=== PATIENT | male | born 1990 ===

== ENCOUNTER 2020-05-12 07:21 | Outpatient (REF) | payer OTHER, SELFPAY | END 2020-05-12 07:22 | disposition home or self-care (01) | LOC: HO.LAB 07:21 | PROVIDERS: Visit Provider Internal Medicine | DX: Z20.828 Contact with and (suspected) exposure to other viral communicable diseases (principal) | CPT/HCPCS: C9803; U0003 ==

== ENCOUNTER 2021-06-24 09:48 | Outpatient (REF) | payer OTHER, SELFPAY ==
[2021-06-24 10:44] LABS: Hemoglobin 16.2 g/dl (14.0-18.0); Mean Corpuscular HGB Conc 33.8 g/dl (31.0-36.0); Mean Corpuscular Hemoglobin 28.4 pg (27.0-33.0); Mean Corpuscular Volume 84.2 fL (80.0-98.0); Mean Platelet Volume 12.4 fL (9.4-12.4); Platelet Count 209 X10*3/uL (160-400); Red Cell Distribution Width 12.3 % (11.0-16.0); White Blood Count 9.3 X10*3/uL (4.8-10.8)
[2021-06-24 11:05] LABS: Creatinine Urine 56.44 mg/dL; Microalbum/Creatinine Ratio Ur 10.6 ug/mg cr
[2021-06-24 11:24] LABS: Alanine Aminotransferase 17 U/L (0-40); Albumin Level 4.5 g/dL (3.5-5.0); Alkaline Phosphatase 149 U/L (39-117); Anion Gap 15 (12-20); Aspartate Amino Transferase 14 U/L (5-37); Blood Urea Nitrogen 15 mg/dL (9-16); Calcium 9.9 mg/dL (8.4-10.2); Carbon Dioxide 23 mmol/L (22-29); Chloride 102 mmol/L (96-108); Cholesterol 410 mg/dL; Estimated Glomerular Filt Rate > 60; Glucose Fasting 310 mg/dL (60-99); HDL Cholesterol 25 mg/dL; Potassium 4.6 mmol/L (3.3-5.1); Sodium 135 mmol/L (135-145); Total Protein 8.8 g/dL (6.5-8.0); Triglycerides 2490 mg/dL
[2021-06-24 11:35] LABS: TSH reflex Free T4 1.19 uIU/mL (0.32-4.0)
[2021-06-24 11:40] LABS: Bilirubin Total 0.5 mg/dL (0.0-1.0)
== END 2021-06-24 09:49 | disposition home or self-care (01) ==
LOC: HO.LAB 09:48
PROVIDERS: PCP Physician Assistant; Visit Provider Physician Assistant
DX: E11.65 Type 2 diabetes mellitus with hyperglycemia (principal); Z13.29 Encounter for screening for other suspected endocrine disorder
CPT/HCPCS: 36415; 80053; 80061; 82043; 84443; 85027

== ENCOUNTER 2021-09-04 06:28 | Outpatient (REF) | payer OTHER, SELFPAY ==
[2021-09-04 07:36] LABS: Hematocrit 47.4 % (42.0-52.0); Hemoglobin 15.2 g/dl (14.0-18.0); Mean Corpuscular HGB Conc 32.1 g/dl (31.0-36.0); Mean Corpuscular Volume 84.3 fL (80.0-98.0); Mean Platelet Volume 11.9 fL (9.4-12.4); Platelet Count 218 X10*3/uL (160-400); Red Blood Count 5.62 X10*6/uL (4.60-5.80); Red Cell Distribution Width 12.6 % (11.0-16.0); White Blood Count 10.1 X10*3/uL (4.8-10.8)
[2021-09-04 07:55] LABS: Creatinine Urine 237.61 mg/dL; Microalbum/Creatinine Ratio Ur 19.3 ug/mg cr
[2021-09-04 08:01] LABS: Alanine Aminotransferase 25 U/L (0-40); Albumin Level 4.7 g/dL (3.5-5.0); Alkaline Phosphatase 108 U/L (39-117); Anion Gap 11 (12-20); Aspartate Amino Transferase 16 U/L (5-37); Bilirubin Total 0.7 mg/dL (0.0-1.0); Blood Urea Nitrogen 14 mg/dL (9-16); Calcium 9.8 mg/dL (8.4-10.2); Carbon Dioxide 25 mmol/L (22-29); Chloride 108 mmol/L (96-108); Cholesterol 119 mg/dL; Estimated Glomerular Filt Rate > 60; Glucose Fasting 177 mg/dL (60-99); HDL Cholesterol 27 mg/dL; LDL Cholesterol Calculated 65 mg/dl; Lipase 60 U/L (8-78); Potassium 4.2 mmol/L (3.3-5.1); Sodium 140 mmol/L (135-145); Total Protein 7.8 g/dL (6.5-8.0); Triglycerides 135 mg/dL
[2021-09-04 08:14] LABS: TSH reflex Free T4 1.12 uIU/mL (0.32-4.0)
== END 2021-09-04 06:29 | disposition home or self-care (01) ==
LOC: HO.LAB 06:28
PROVIDERS: PCP Physician Assistant; Visit Provider Physician Assistant
DX: E11.65 Type 2 diabetes mellitus with hyperglycemia (principal); E78.1 Pure hyperglyceridemia
CPT/HCPCS: 36415; 80053; 80061; 82043; 83690; 84443; 85027

== ENCOUNTER 2024-04-14 07:13 | Outpatient (REF) | payer OTHER, SELFPAY ==
[2024-04-14 08:00] LABS: Hematocrit 45.2 % (42.0-52.0); Hemoglobin 15.3 g/dl (14.0-18.0); Mean Corpuscular HGB Conc 33.8 g/dl (31.0-36.0); Mean Corpuscular Hemoglobin 28.2 pg (27.0-33.0); Mean Corpuscular Volume 83.2 fL (80.0-98.0); Mean Platelet Volume 12.2 fL (9.4-12.4); Platelet Count 199 X10*3/uL (160-400); Red Blood Count 5.43 X10*6/uL (4.60-5.80); White Blood Count 7.8 X10*3/uL (4.8-10.8)
[2024-04-14 08:07] LABS: Estimated Average Glucose 306 mg/dL; Hemoglobin A1C 415.1312 umol/L; Hemoglobin A1c % 12.3 % (<6.0); Total Hemoglobin (HGBA1C) 3737.1508 umol/L
[2024-04-14 08:42] LABS: Alanine Aminotransferase 15 U/L (0-40); Albumin Level 4.5 g/dL (3.5-5.0); Alkaline Phosphatase 144 U/L (39-117); Anion Gap 14 (12-20); Aspartate Amino Transferase 12 U/L (5-37); Bilirubin Total 0.5 mg/dL (0.0-1.0); Blood Urea Nitrogen 15 mg/dL (9-16); Calcium 9.4 mg/dL (8.4-10.2); Carbon Dioxide 24 mmol/L (22-29); Chloride 103 mmol/L (96-108); Cholesterol 214 mg/dL (<200); Estimated Glomerular Filt Rate > 60; Glucose Fasting 332 mg/dL (60-99); HDL Cholesterol 28 mg/dL (>40); Potassium 4.1 mmol/L (3.3-5.1); Sodium 137 mmol/L (135-145); Total Protein 7.5 g/dL (6.5-8.0); Triglycerides 604 mg/dL (<150)
[2024-04-14 09:28] LABS: Creatinine Urine 99.88 mg/dL
== END 2024-04-14 07:14 | disposition home or self-care (01) ==
LOC: HO.LAB 07:13
PROVIDERS: PCP Physician Assistant; Visit Provider Physician Assistant
DX: E11.65 Type 2 diabetes mellitus with hyperglycemia (principal); E78.1 Pure hyperglyceridemia
CPT/HCPCS: 36415; 80053; 80061; 82043; 82570; 83036; 85027

== ENCOUNTER 2024-04-19 10:48 | Outpatient (AMB) | payer OTHER, SELFPAY ==
--- NOTE | 2024-04-19 11:05 | A.OFFPC_ITS ---
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 Required: No Accompanied by: Self / Same As Patient Allergies No Known Allergies [No Known Allergies*] Allergy (Verified 04/19/24 11:18) Medication List - Last Reconciled 04/19/24 by Chris Lee PA-C metformin 500 mg PO BID 30 days polymyxin B sulf-trimethoprim 10,000 unit- 1 mg/mL (Polytrim) 1 drp ophthalmic (eye) QID PRN 5 days Tobacco use date assessed: 04/19/24 Dental Screening Dental Screen Date: 04/19/24 Did you have a dental visit in the last 12 months?: Yes Did you have a dental problem in the last 6 months where you did not have access to dental care?: No Was dental information given to patient?: Patient has dentist HPI PE and DMII F/U HPI Details Patient is a 33 year-old male here today for three-month follow-up visit patient has a past medical history significant for type 2 diabetes, hyperlipidemia, history of biliary obstruction with stent placement at [facility]. DMII: ? Has been on Trulicity and metformin in the past with good effect. Not on any medication at this time. A1c very elevated above 12.. Reports he has stopped Trulicity and quite awhile ago due to episode of hypoglycemia and had never return back to using medication. Have noticed significant weight loss since last office visit. Does admit to polyuria and polydipsia. WE DID DISCUSS THE POSSIBLE NEED TO START INSULIN THERAPY DAILY THOUGH HE DECLINES AT THIS TIME. PLAN: Restart metformin 500 b.i.d. .. Hypertriglyceridemia:? Most recent lipid panel showing elevated triglycerides and total cholesterol. This may be due to his uncontrolled diabetes. Will try to capture control of his diabetes and recheck lipid panel. Vaccines: Up-to-date with COVID vaccine, flu vaccine, tetanus vaccine and pneumonia vaccine Laboratory Tests 06/24/21 09/03/21 09/04/21 10:14 16:04 07:05 RBC 5.62 Hgb 15.2 Creatinine Fasting Glucose 177 H D Hgb A1c (Clinic) 8.0 H Hemoglobin A1c % Triglycerides 2490 135 Cholesterol 410 119 D TSH 1.19 1.12 Urine Microalbumin 04/14/24 07:39 RBC 5.43 Hgb Creatinine 1.04 Fasting Glucose 332 H Hgb A1c (Clinic) Hemoglobin A1c % 12.3 H Triglycerides 604 H Cholesterol 214 H TSH Urine [facility]albumin 7.0 [facility] Social History (Updated 04/19/24 @ 11:22 by Chris Lee PA-C) Housing: House Patient Tobacco Use Status: Never used Tobacco Tobacco use type: Cigarette e-Cigarette/Vaping Use: Never Used Second Hand Smoke Exposure: No service: No Current occupational status: employed 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 1. Little interest or pleasure in doing things: not at all 2. Feeling down, depressed, or hopeless: not at all 3. Trouble falling or staying asleep, or sleeping too much: not at all 4. Feeling tired or having little energy: not at all 5. Poor appetite or overeating: not at all 6. Feeling bad about yourself - or that you are a failure or have let yourself or your family down: not at all 7. Trouble concentrating on things, such as reading the newspaper or watching television: not at all 8. Moving or speaking so slowly that other people could have noticed. Or the opposite - being so fidgety or restless that you have been moving around a lot more than usual: not at all 9. Thoughts that you would be better off or of hurting yourself in some way: not at all Total score: 0 Depression Screening Interpretation: Negative Depression Screening Done: Yes 31696 - PHQ-9 Billing: Yes Source: Developed by Drs. Marco Cano, Judy Castillo, Garcia Ag and colleagues, with an educational paras from [employer]. Thrive Questionnaire Date Thrive assessed: 04/19/24 I am a: Patient What is your living situation today?: I have a steady place to live Within the past 12 months, did the food you bought not last and you didn't have the money to get more?: Never true Within the past 12 months, did you worry whether your food would run out before you got money to buy more?: Never true Do you have trouble paying for medicines?: No Do you have trouble getting transportation to medical appointments?: No Do you have trouble paying your heating and electricity bill?: No Do you have trouble taking care of your child, family member or friend?: No Do you have trouble with day-to-day activities such as bathing, preparing meals, shopping, managing finances, etc.?: No Are you currently unemployed and looking for a job?: No Are you interested in more education?: No Please select the resources that you would like help with: None Currently or been in a relationship where the following occur: No concerns reported THRIVE Score: 0 AUDIT C Alcohol Use Questionnaire (AUDIT-C) 1. How often do you have a drink containing alcohol?: Never 3. How often do you have six or more drinks on one occasion?: Never Total Score: 0 MARIA EUGENIA-7 AMB Questionnaire MARIA EUGENIA-7 Date MARIA EUGENIA - 7 assessed: 04/19/24 Feeling nervous, anxious, or on edge: 0 = Not at all Not being able to stop or control worryin = Not at all Worrying too much about different things: 0 = Not at all Trouble relaxin = Not at all Being so restless that it is hard to sit still: 0 = Not at all Becoming easily annoyed or irritable: 0 = Not at all Feeling afraid as if something awful might happen: 0 = Not at all Total MARIA EUGENIA-7 score (0-4 normal; 5-9 mild; 10-14 moderate; 15-21 severe): 0 Source: Developed by Drs. Marco Cano, Judy Castillo, Garcia Ag and colleagues, with an educational paras from [employer]. MARIA EUGENIA-7 Assessment Billing MARIA EUGENIA-7 Assessment Tool: MARIA EUGENIA-7 Assessment 88145 Review of Systems Const Denies body aches, Denies chills, Denies excessive sweating, Denies fatigue, Denies fever(s) and Denies headache(s) Eyes Denies blurry vision ENT Denies dysphagia, Denies vertigo, Denies dizziness, Denies headache(s), Denies hearing loss and Denies tinnitus Card Denies chest pain, Denies chest pain with activity, Denies syncope, Denies irregular heart rhythm and Denies dyspnea Resp Denies chest congestion, Denies cough, Denies hemoptysis, Denies dyspnea and Denies wheezing GI Denies abdominal pain, Denies melena, Denies hematochezia, Denies coffee ground emesis, Denies dysphagia, Denies diarrhea, Denies nausea and Denies vomiting Denies difficulty urinating, Denies dysuria, Denies urinary frequency, Denies urinary hesitancy and Denies urinary urgency Musc Denies arthralgias, Denies limited range of motion, Denies muscle cramps and Denies muscle weakness Skin/Breast Denies rash and Denies skin ulcer Neuro Denies Abnormal speech present, Denies confusion, Denies vertigo, Denies dizziness, Denies syncope, Denies headache(s), Denies memory loss and Denies seizure-like activity Psych Denies anxiety, Denies confusion, Denies depression, Denies memory loss, Denies panic attacks and Denies paranoia Endo Denies excessive sweating, Denies fatigue, Denies flushing, Denies polydipsia and Denies polyuria Aller/Immun Denies wheezing Physical exam (Primary Care) Vital Signs: Last Vital Signs Pulse 92 04/19/24 11:06 BP 104/68 04/19/24 11:06 Pulse Ox 99 04/19/24 11:06 Oxygen Delivery Method Room Air 04/19/24 11:06 BMI result Body Mass Index 23.7 Tobacco/Smoking Status: Tobacco use Status Tobacco use date assessed 04/19/24 04/19/24 11:08 Patient Tobacco Use Status Never used Tobacco 04/19/24 11:22 Tobacco use type Cigarette 04/19/24 11:22 e-Cigarette/Vaping Use Never Used 04/19/24 11:22 PHQ-9: PHQ-9 Score PHQ-9: Total score 0 04/19/24 11:08 Depression Screening Interpretation: Negative Thrive Assessment: Date of Thrive Assessment Date Thrive assessed 04/19/24 04/19/24 11:08 Currently or been in a relationship where the following occur: No concerns reported Const General: cooperative, comfortable, no acute distress, alert and awake; No confusion Orientation/consciousness: oriented to person, oriented to place, patient oriented x3 and No confusion HENMT Head: Yes normocephalic Ears: external ears normal and TM's normal bilaterally Face and sinus: No sinus tenderness Mouth: Normal oral and palatal mucosa present and tongue normal Teeth and gingiva: dentition normal and gingiva normal Throat: Yes posterior oropharynx normal, Yes tonsils normal and Yes uvula midline Eyes Conjunctivae: conjunctivae normal Sclerae: sclerae normal Pupils: Equal, round and reactive pupils present EOM: EOMs intact bilaterally Direct Ophthalmoscopy: No no photophobia Neck Neck: Yes no lymphadenopathy, No tender and Yes no JVD Thyroid: Thyroid normal Carotids: no bruits Chest Chest palpation & inspection: no tenderness Resp Effort & Inspection: normal respiratory effort, no audible wheezes, not labored and no stridor Auscultation: no crackles, no rales, no rhonchi and no wheezes Cardio Jugular venous distension: no JVD Rate: regular rate, not bradycardic and not tachycardic Rhythm: regular rhythm Bruits: no carotid bruits Peripheral pulses: Peripheral pulses 2+ throughout GI Inspection: Yes normal to inspection, No abdominal wall ecchymosis and No visible herniation Palpation (GI): Soft to palpation, nontender, no guarding, not rigid and No hepatosplenomegaly present Auscultation: normoactive bowel sounds General: Yes no CVA tenderness Back/Spine/Pelvis Back: no CVA tenderness and No back tenderness Cervical Spine: cervical ROM normal Thoracic/Lumbar Spine: thoracic and lumbar spine normal to inspection, straight leg raise negative bilaterally, No thoraco-lumbar ROM limited and No lumbar spinal tenderness Skin Lesions: no lesions Rashes: no rashes Wounds: no wounds Neuro General: oriented to person, oriented to place, patient oriented x3, CN's II-XI intact bilaterally and No confusion Cranial nerves: Yes Equal, round and reactive pupils present and Yes Normal accommodation reflex present Cognition (Neuro): normal cognition Speech: No Abnormal speech present Gait exam (Neuro): Normal gait present Motor exam (neuro): 5/5 motor strength present throughout Extrem Right upper extremity: full ROM; no cyanosis Left upper extremity: full ROM; no cyanosis Right lower extremity: no edema Left lower extremity: no edema Psych Appearance: grossly normal Mental Status: mental status grossly normal Affect: normal affect Attitude: cooperative Thought process: Normal thought process present Office Procedures Flu Questionnaire Does the patient have a severe egg allergy?: No Does the patient have severe life threatening allergies?: No Does the patient have a fever or illness today?: No Has the patient ever had Guillain-Hutchinson Syndrome?: No Has the patient ever had any past reaction to a flu shot?: No Immunizations Fluarix Triv [id number] (PF) 45 mcg (15 mcg x 3)/0.5 mL IM syringe Performing Provider: Chris Lee PA-C [facility] Administered by: NADEGE Madera on 04/19/24 11:08 Dose Route Admin Location Dispensed Lot Number Expiration Date NDC Polysomnography Technician 0.5 mL IM Left Deltoid 0.5 mL [id number] 12/24/24 97571-125-00 [employer] VIS Given Date VIS Provided VIS Publication Date 04/19/24 Single Vaccine 21 Eligibility Eligibility Date Funding Source Not [facility] Eligible 04/19/24 Private Coding Level of Care Code Est Pt Prev Care 18-39y([id number]) Diagnoses Annual physical exam Z00.00 Type 2 diabetes mellitus with hyperglycemia, without long-term current use of insulin E11.65 Diabetes mellitus complication status: with hyperglycemia Diabetes mellitus mcc insulin use: without mcc use Pure hypertriglyceridemia E78.1 Hyperlipidemia type: pure hypertriglyceridemia Additional Codes MARIA EUGENIA-7 Assessment Billing - MARIA EUGENIA-7 Assessment Tool: MARIA EUGENIA-7 Assessment 03046 ([id number]) Assessment & Plan Assessment & Plan (1) Annual physical exam: Code(s): Z00.00 - Encounter for general adult medical examination without abnormal findings Category: Medical Plan: As per HPI (2) DMII (diabetes mellitus, type 2): Code(s): E11.9 - Type 2 diabetes mellitus without complications Category: Medical Qualifiers: Diabetes mellitus complication status: with hyperglycemia 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 He will be restarting metformin 500 b .i.d.. Not interested in restarting Trulicity which had helped him in the past. He reports having hypoglycemia with this. We did discuss the possible need of starting daily insulin though would like to hold off and work on lifestyle and using metformin. Goal A1c is to be below 7.0 (3) HLD (hyperlipidemia): Code(s): E78.5 - Hyperlipidemia, unspecified Category: Medical Qualifiers: Hyperlipidemia type: pure hypertriglyceridemia Qualified Code(s): E78.1 - Pure hyperglyceridemia Plan: Patient's most recent lipid panel showing elevated triglycerides likely an the setting of uncontrolled type 2 diabetes. Will recheck in 3 months and try to gain some capture of control of his type 2 diabetes Orders: Orders Influenza [id number] Immunization Today Z23 - Encounter for immunization Hemoglobin A1c 3 Months E11.65 - Type 2 diabetes mellitus with hyperglycemia Lipid Panel 3 Months E78.1 - Pure hyperglyceridemia Comprehensive [place]. Panel Fast 3 Months E11.65 - Type 2 diabetes mellitus with hyperglycemia Complete Blood Count no Diff 3 Months E11.65 - Type 2 diabetes mellitus with hyperglycemia Patient Instructions: Goal: A1c to be below 7.0 Barriers: Adherence to physical activity and healthy eating habits
[2024-04-19 11:06] VITALS: BP 104/68; PULSE 92; O2SAT 99; BMI 23.7
== END 2024-04-19 11:35 | disposition home or self-care (01) ==
PROVIDERS: PCP Physician Assistant; Visit Provider Physician Assistant
DX: Z00.00 Encounter for general adult medical examination without abnormal findings (principal); E11.65 Type 2 diabetes mellitus with hyperglycemia; E78.1 Pure hyperglyceridemia; Z23 Encounter for immunization

== ENCOUNTER → 2024-04-19 10:48 | Outpatient (BNVA) | payer OTHER, SELFPAY | PROVIDERS: PCP Physician Assistant; Visit Provider Physician Assistant | DX: Z00.00 Encounter for general adult medical examination without abnormal findings (principal); E11.65 Type 2 diabetes mellitus with hyperglycemia; E78.1 Pure hyperglyceridemia; Z23 Encounter for immunization | CPT/HCPCS: 90471; 90656; 96127 ==

== ENCOUNTER 2024-07-25 15:31 | Outpatient (AMB) | payer OTHER, SELFPAY ==
[2024-07-25 15:44] VITALS: BP 116/84; PULSE 90; TEMP 36.1; O2SAT 98; BMI 24.4
--- NOTE | 2024-07-25 15:44 | MHC.PC.OV ---
Vital Signs 07/25/24 15:44 Height 5 ft 9 in Weight 165 lb 2 oz BMI 24.4 BP 116/84 Blood Pressure Location Lt brachial Position Sitting Pulse 90 Pulse Source Pulse Oximeter Temp 97 F Temp Source Temporal Artery Scan Pulse Oximetry (%) 98 Oxygen Delivery Method Room Air Intake Visit Reasons: f/u DMII Filter Operator Required: No Accompanied by: Self / Same As Patient Allergies No Known Allergies [No Known Allergies*] Allergy (Verified 07/25/24 16:00) Medication List - Last Reconciled 07/25/24 by Chris Lee PA-C metformin 500 mg PO BID 30 days polymyxin B sulf-trimethoprim 10,000 unit- 1 mg/mL (Polytrim) 1 drp ophthalmic (eye) QID PRN 5 days Tobacco use date assessed: 07/25/24 Dental Screening Dental Screen Date: 07/25/24 Did you have a dental visit in the last 12 months?: Yes Did you have a dental problem in the last 6 months where you did not have access to dental care?: No Was dental information given to patient?: Patient has dentist HPI f/u DMII HPI Details Patient is a 33 year-old male here today for three-month follow-up visit patient has a past medical history significant for type 2 diabetes, hyperlipidemia. Concern--> he reports having right shoulder pain worse when lying down to sleep. He does report a small trauma with a slip and fall about a month ago that may have injured his right shoulder. DMII: ? Has restarted metformin 500 b.i.d. and A1c has much improved. He reports he feels better and has been more diligent about his diabetic diet. He has also been a little more physically active. A1c still slightly above 9 thus will increase his metformin to maximal dose of 1000 mg b.i.d. for better glycemic control. .. Hypertriglyceridemia:? Most recent lipid panel showing much improved total cholesterol, triglycerides and LDL. He has been working on dietary modifications. 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 1. Little interest or pleasure in doing things: not at all 2. Feeling down, depressed, or hopeless: not at all 3. Trouble falling or staying asleep, or sleeping too much: not at all 4. Feeling tired or having little energy: not at all 5. Poor appetite or overeating: not at all 6. Feeling bad about yourself - or that you are a failure or have let yourself or your family down: not at all 7. Trouble concentrating on things, such as reading the newspaper or watching television: not at all 8. Moving or speaking so slowly that other people could have noticed. Or the opposite - being so fidgety or restless that you have been moving around a lot more than usual: not at all 9. Thoughts that you would be better off or of hurting yourself in some way: not at all Total score: 0 Depression Screening Interpretation: Negative Depression Screening Done: Yes 93112 - PHQ-9 Billing: Yes Source: Developed by Drs. Marco Cano, Judy Castillo, Garcia Ag and colleagues, with an educational paras from [employer]. Thrive Questionnaire Date Thrive assessed: 07/25/24 I am a: Patient What is your living situation today?: I have a steady place to live Within the past 12 months, did the food you bought not last and you didn't have the money to get more?: Never true Within the past 12 months, did you worry whether your food would run out before you got money to buy more?: Never true Do you have trouble paying for medicines?: No Do you have trouble getting transportation to medical appointments?: No Do you have trouble paying your heating and electricity bill?: No Do you have trouble taking care of your child, family member or friend?: No Do you have trouble with day-to-day activities such as bathing, preparing meals, shopping, managing finances, etc.?: No Are you currently unemployed and looking for a job?: No Are you interested in more education?: No Please select the resources that you would like help with: None Currently or been in a relationship where the following occur: No concerns reported THRIVE Score: 0 AUDIT C Alcohol Use Questionnaire (AUDIT-C) 1. How often do you have a drink containing alcohol?: Never 3. How often do you have six or more drinks on one occasion?: Never Total Score: 0 MARIA EUGENIA-7 AMB Questionnaire MARIA EUGENIA-7 Date MARIA EUGENIA - 7 assessed: 07/25/24 Feeling nervous, anxious, or on edge: 0 = Not at all Not being able to stop or control worryin = Not at all Worrying too much about different things: 0 = Not at all Trouble relaxin = Not at all Being so restless that it is hard to sit still: 0 = Not at all Becoming easily annoyed or irritable: 0 = Not at all Feeling afraid as if something awful might happen: 0 = Not at all Total MARIA EUGENIA-7 score (0-4 normal; 5-9 mild; 10-14 moderate; 15-21 severe): 0 Source: Developed by Drs. Marco Cano, Judy Castillo, Garcia Ag and colleagues, with an educational paras from [employer]. MARIA EUGENIA-7 Assessment Billing MARIA EUGENIA-7 Assessment Tool: MARIA EUGENIA-7 Assessment 48205 Review of Systems Const Denies headache(s) Eyes Denies loss of vision ENT Denies vertigo, Denies dizziness, Denies headache(s) and Denies sore throat Card Denies chest pain, Denies leg edema and Denies lightheadedness Resp Denies cough, Denies hemoptysis and Denies wheezing GI Denies abdominal pain, Denies melena, Denies constipation, Denies diarrhea and Denies vomiting Denies dysuria, Denies urinary frequency and Denies urinary urgency Musc Denies arthralgias, Denies joint swelling, Denies numbness and Denies tingling Neuro Denies Abnormal speech present, Denies behavioral changes, Denies vertigo, Denies dizziness, Denies headache(s), Denies loss of vision, Denies memory loss, Denies numbness and Denies tingling Psych Denies anxiety, Denies behavioral changes, Denies depression, Denies memory loss and Denies panic attacks [place]/Lymph Denies easy bleeding and Denies easy bruising Aller/Immun Denies wheezing Physical exam (Primary Care) Vital Signs: Last Vital Signs Temp 97 F 07/25/24 15:44 Pulse 90 07/25/24 15:44 BP 116/84 07/25/24 15:44 Pulse Ox 98 07/25/24 15:44 Oxygen Delivery Method Room Air 07/25/24 15:44 BMI result Body Mass Index 24.4 Tobacco/Smoking Status: Tobacco use Status Tobacco use date assessed 07/25/24 07/25/24 15:52 Patient Tobacco Use Status Never used Tobacco 07/25/24 15:48 Tobacco use type Cigarette 07/25/24 15:48 e-Cigarette/Vaping Use Never Used 07/25/24 15:48 PHQ-9: PHQ-9 Score PHQ-9: Total score 0 07/25/24 15:52 Depression Screening Interpretation: Negative Thrive Assessment: Date of Thrive Assessment Date Thrive assessed 07/25/24 07/25/24 15:52 Currently or been in a relationship where the following occur: No concerns reported Const General: healthy appearing, no acute distress, alert and awake Nutritional Appearance: well nourished Orientation/consciousness: oriented to person, oriented to place and oriented to time HENMT Ears: TM's normal bilaterally General nose exam: Normal nasal mucous membranes and turbinates present Eyes Conjunctivae: conjunctivae normal Sclerae: sclerae normal Pupils: Equal, round and reactive pupils present Neck Neck: Yes no lymphadenopathy and Yes no JVD Thyroid: Thyroid normal Carotids: no bruits Resp Effort & Inspection: normal respiratory effort and not tachypneic Auscultation: no crackles, no rales, no rhonchi and no wheezes Cardio Rate: regular rate Rhythm: regular rhythm Heart sounds: no murmurs and normal S1 and S2 GI Palpation (GI): Soft to palpation, nontender, no hepatomegaly and no splenomegaly Auscultation: normal bowel sounds Skin General skin exam: no rashes or lesions noted and dry skin Neuro General: oriented to person, oriented to place and oriented to time Cranial nerves: Yes Equal, round and reactive pupils present Speech: No Abnormal speech present Gait exam (Neuro): Normal gait present Motor exam (neuro): no tremor noted Extrem Right upper extremity: full ROM Left upper extremity: full ROM Right lower extremity: full ROM; no edema Left lower extremity: full ROM; no edema Psych Mental Status: mental status grossly normal Speech and movement: Normal speech and movement present Affect: normal affect Attitude: cooperative Thought process: Normal thought process present Office Procedures Flu Questionnaire Does the patient have a severe egg allergy?: No Does the patient have severe life threatening allergies?: No Does the patient have a fever or illness today?: No Has the patient ever had Guillain-[place] Syndrome?: No Has the patient ever had any past reaction to a flu shot?: No Results AMB Hemoglobin A1c AMB Hemoglobin A1c 9.2 % Last Edit by NADEGE Madera on 07/25/24 15:58 Immunizations Fluarix Triv 1123-0309 (PF) 45 mcg (15 mcg x 3)/0.5 mL IM syringe Performing Provider: Chris Lee PA-C [facility] [facility] [facility] [place] [facility] Administered by: NADEGE Madera on 07/25/24 15:57 Dose Route Admin Location Dispensed Lot Number Expiration Date [facility] Outbound Sales Consultant 0.5 mL IM Left Deltoid 0.5 mL [id number] 12/24/24 [id number] Yi Chang Ou Sai IT VIS Given Date VIS Provided VIS Publication Date 07/25/24 Single Vaccine 21 Eligibility Eligibility Date Funding Source Not [facility] Eligible 07/25/24 Private Results Reviewed Results Reviewed: Laboratory Last Values Hgb A1c (Clinic) 9.2 % (4.0-6.0) H 07/25/24 15:57 Coding Level of Care Code Est Pt Level 4 (63477) Diagnoses Type 2 diabetes mellitus with hyperglycemia, without long-term current use of insulin E11.65 Diabetes mellitus assisted insulin use: without dedicated intermodal truck driver use Diabetes mellitus complication status: with hyperglycemia Pure hypertriglyceridemia E78.1 Hyperlipidemia type: pure hypertriglyceridemia Right shoulder tendinitis M77.8 Additional Codes MARIA EUGENIA-7 Assessment Billing - MARIA EUGENIA-7 Assessment Tool: MARIA EUGENIA-7 Assessment 83339 ([id number]) PHQ-9 - 11846 - PHQ-9 Billing: Yes ([id number]) Assessment & Plan Assessment & Plan (1) DMII (diabetes mellitus, type 2): Code(s): E11.9 - Type 2 diabetes mellitus without complications Category: Medical Qualifiers: Diabetes mellitus assisted insulin use: without dedicated intermodal truck driver use Diabetes mellitus complication status: with hyperglycemia Qualified Code(s): E11.65 - Type 2 diabetes mellitus with hyperglycemia Plan: Patient's type 2 diabetes suboptimally controlled though has been much better. He has been working on dietary modifications and been more adherent to his metformin. Will increase his metformin to a 1000 b.i.d. for better glycemic control. Goal A1c is to be below 7.0 (2) HLD (hyperlipidemia): Code(s): E78.5 - Hyperlipidemia, unspecified Category: Medical Qualifiers: Hyperlipidemia type: pure hypertriglyceridemia Qualified Code(s): E78.1 - Pure hyperglyceridemia Plan: Patient's most recent lipid panel showing excellent control of his total cholesterol and LDL. He has been making dietary modifications and has been more physically active. Goal LDL to remain below 100 (3) Right shoulder tendinitis: Code(s): M77.8 - Other enthesopathies, not elsewhere classified Category: Medical Plan: Patient reports a month history of right shoulder pain worse when lying down. She does report a slip and fall about a month ago that may have caused his right shoulder pain. Will get an x-ray to evaluate and will try meloxicam for anti-inflammatory reasons. Orders: Orders XR shoulder RT min 2V Today M77.8 - Other enthesopathies, not elsewhere classified Influenza [id number] Immunization Today Z23 - Encounter for immunization AMB Hemoglobin A1c Today E11.65 - Type 2 diabetes mellitus with hyperglycemia Medications: New metformin 1,000 mg PO BID 90 days 180 tabs 1RF E11.65 - Type 2 diabetes mellitus with hyperglycemia meloxicam 15 mg PO DAILY 20 days PRN 20 tabs 0RF right shoulder pain M77.8 - Other enthesopathies, not elsewhere classified Discontinued polymyxin B sulf-trimethoprim 10,000 unit- 1 mg/mL (Polytrim) Discontinued Reason: Doctor's Order 1 drp ophthalmic (eye) QID 5 days PRN 10 mL 0RF Conjunctivitis left eye metformin Discontinued Reason: Doctor's Order 500 mg PO BID 30 days 60 tabs 1RF E11.65 - Type 2 diabetes mellitus with hyperglycemia
== END 2024-07-25 16:27 | disposition home or self-care (01) ==
PROVIDERS: PCP Physician Assistant; Visit Provider Physician Assistant
DX: Z23 Encounter for immunization (principal); E11.65 Type 2 diabetes mellitus with hyperglycemia

== ENCOUNTER → 2024-07-25 15:31 | Outpatient (BNVA) | payer OTHER, SELFPAY | PROVIDERS: PCP Physician Assistant; Visit Provider Physician Assistant | DX: E11.65 Type 2 diabetes mellitus with hyperglycemia (principal); E78.1 Pure hyperglyceridemia; M77.8 Other enthesopathies, not elsewhere classified; Z23 Encounter for immunization | CPT/HCPCS: 83036; 90471; 90656; 96127 ==

== ENCOUNTER 2024-08-27 10:23 | Outpatient (REF) | payer OTHER, SELFPAY ==
--- NOTE | ~2024-08-27 | XR_ITS ---
EXAMINATION: XR SHOULDER, RIGHT CLINICAL INFORMATION: M77.8 - Other enthesopathies, not elsewhere classified COMPARISON: None available. TECHNIQUE: AP external rotation, Grashey, scapular Y, and axillary views of the right shoulder. FINDINGS: No acute cortical disruption or malalignment. No lytic or blastic lesions. No metallic or radiopaque foreign body. 2 mm calcified pulmonary nodule right lung. XR/XR shoulder RT min 2V IMPRESSION: Normal right shoulder. 2 mm granuloma, right lung.. Electronically signed by: Jerel Hale MD 08/28/2024 08:58 AM PADMINI
--- OUTSIDE RECORDS SUMMARY | 2024-08-27 12:02 | XMS_ITS | Clinical Summary ---
Author Organization [employer] Address [address] [place] [address] Care Team Providers Care Computer Networking Instructor Adjunct Name Role Phone Unavailable Primary Care Provider Unavailabl e Immunizations Name Administration Dates Next Due Pfizer Covid-19 Vaccine 12+ 12/09/2020, Pfizer Covid-19 Vaccine 12+ Bivalent 09/03/2022 Social History Tobacco Use Types Packs/Day Years Used Date Smoking Tobacco: Never Assessed Sex and Gender Information Value Date Recorded Sex Assigned at Male 09/03/2022 3:37 PM EST Legal Sex Male 3:34 PM EST Gender Identity Male 09/03/2022 3:37 PM EST Sexual Orientation Straight 09/03/2022 3: 37 PM EST Plan of Treatment Health Maintenance Due Date Last Done Comments Depression Screening 1988 HIV Screening 1988 Lipid Panel 1988 SDOH Screening 1988 Alcohol/Substance Use Screening 2000 Tobacco Screening 2000 Family Planning (PISQ) 2003 Hepatitis C Screening 2006 DTaP/Tdap/Td Vaccines (1 - Tdap) 2007 Hepatitis B Vaccines (1 of 3 - 19+ 3-dose series) 2007 COVID-19 Vaccine ( - 2023-2 5 season) 2024 09/03/2022, 12/09/2020, 11/17/2020 Influenza Vaccine (#1) 2024 Zoster Vaccines (1 of 2) 2038 RSV Patients and Patients Aged 60 years or older (1 - 1-dose 75+ series) 2063 HIB Vaccines Aged Out No longer eligi ble based on patient's age to complete this topic HPV Vaccines Aged Out No longer eligi ble based on patient's age to complete this topic Hepatitis A Vaccines Aged Out No long er eligible based on patient's age to complete this topic IPV Vaccines Aged Out No longer eligi ble based on patient's age to complete this topic Meningococcal Vaccine Aged Out No molina janine eligible based on patient's age to complete this topic Pneumococcal Vaccine: Pediatrics (0 to 5 Years) and At-Risk Patients (6 to 49) Years) Aged Out No longer eligible b ased on patient's age to complete this topic RSV under 20 months Aged Out No longe r eligible based on patient's age to complete this topic Rotavirus Vaccines Aged Out No longer eligible based on patient's age to complete this topic Insurance [employer]
== END 2024-08-27 10:24 | disposition home or self-care (01) ==
LOC: HO.XRAY 10:23
PROVIDERS: PCP Physician Assistant; Visit Provider Physician Assistant
DX: M77.8 Other enthesopathies, not elsewhere classified (principal)
CPT/HCPCS: 73030

== ENCOUNTER → 2024-08-27 10:28 | Outpatient (BNV) | payer OTHER, SELFPAY | PROVIDERS: PCP Physician Assistant; Visit Provider Radiology Diagnostic Radiology | DX: J84.10 Pulmonary fibrosis, unspecified (principal) | CPT/HCPCS: 73030 ==

== ENCOUNTER 2024-09-24 07:04 | Outpatient (RCR) | payer OTHER, SELFPAY ==
--- NOTE | 2024-09-20 08:39 | MHC.PT.EP ---
[facility] [place] Office [place] Office [place] Office [address] Francisco Bueno [address] [phone] F: [phone] F: [phone] F: [phone] F: [phone] Physical Therapy Plan of Care Date of Evaluation: 09/20/24 Date of Surgery: Diagnosis: Rt ROTATOR CUFF TEAR Assessment: 34 YO MALE REF TO PT W DX OF Rt RC TEAR ARTHROPATHY S/P Rt SH DISTRACTION TYPE INJURY W SLIP/ FALL W HOLDING ON W Rt UE IN 05/2024. 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 OBJECTIVE FINDINGS: DECR POSTURAL AWARENESS, TIGHT ANT CHAIN, (+) STRENGTH DEFICITS IN POST RC/ SCAP MM - PAINFUL AROM Rt SH (ESPEC IR AND ABD), (+) NEER'S/ ALEMAN CONY/ BEAR HUG/FULL CAN TESTS Rt; AND Rt SH PAIN ANTEROSUP REGION WHICH FLUCTUATES DEPENDING ON TASKS. CURRENTLY, THERE WAS NO OBVIOUS Rt GH INSTABILITY- IT SEEMS MORE IMPINGEMENT AND SOFT TISSUE IMBALANCE IN ORIGIN. FUNCTIONALLY, THE Pt HAS MODIFIED ADLs, DECR NEFTALI TO PULLING/ LIFTING/ REACHING (OVERHEAD OR POSTERIORLY) W Rt UE. WE DISCUSSED THE PT POC , Pt IN AGREEMENT AND WE WILL PROCEED ADDRESSING THE ABOVE FINDINGS. Frequency and Duration: The patient will be seen 2 x WK x 5 WKS Short Term Goals: *DECR PAIN IN Rt SH TO 2-09/03 *Pt INDEP W SELF CORRECT POSTURE TO REDUCE ANT GH /SCAP TISSUE TENSION *INITIATE HEP-> SCAP ACTIV, PECT FLEXIB, GH STAB *IMPROVE Rt SH AROM Prison Goals: *Pt INDEP W HEP AND SELF-SX MGMT TECHN *Pt'S Rt SH COMPLEX STRENGTH 5/5 AND (-) SPECIAL TESTS Rt SH *Pt INCREASE ACTIVITY NEFTALI / RTW REG DUTY-> IMPROVED SPADI SCORE ( AT EVAL 112/130) *Pt DMEON WFL BODY MECH W 3:3 SIMUL WORK/ ADL TASKS Treatment Plan: Modalities to reduce pain, spasms and effusion. Manual therapy to restore motion and function. Therapeutic exercise to improve strength and flexibility. Neuromuscular re-education for posture and balance. Therapeutic activities to return to functional activities of daily living. Electronically signed by: TIM FERRER PT Please sign and return to therapist. Thank you for your referral.
--- NOTE | 2024-10-01 14:26 | MHC.PT.DC ---
[facility] [place] Office [place] Office [place] Office [address] Francisco Bueno [address] [facility] [phone] F: [phone] F: [phone] F: [phone] F: [phone] Physical Therapy Discharge Report Diagnosis: Rt ROTATOR CUFF TEAR Date of Surgery: DOI 05/2024 Date of Evaluation: 09/20/24 Date of Discharge: 10/01/24 Treatments to Date: 2 Cancellations to Date: 3 No Shows to Date: 2 Discharge Status: Patient Elected to Stop Visit Non-compliance Discharge Summary: MITZI IS DISCHARGED FROM PT PER THE DEPT ATTENADANCE POLICY- HE IS IN [place] AND IS UNCERTAIN WHEN HE WILL RETURN. Electronically signed by: TIM FERRER,PT Please sign and return to therapist. Thank you for your referral.
== END 2024-10-01 14:27 | disposition home or self-care (01) ==
LOC: HO.PT 07:04
PROVIDERS: PCP Physician Assistant; Visit Provider Physician Assistant
DX: M75.101 Unspecified rotator cuff tear or rupture of right shoulder, not specified as traumatic (principal); M12.811 Other specific arthropathies, not elsewhere classified, right shoulder
CPT/HCPCS: 97110; 97140; 97162

== ENCOUNTER 2024-10-29 15:53 | Outpatient (AMB) | payer OTHER, SELFPAY ==
--- NOTE | 2024-10-29 15:59 | A.OFFPC_ITS ---
Vital Signs 10/29/24 16:09 Height 5 ft 9 in Weight 162 lb 8 oz BMI 24.0 BP 128/80 Blood Pressure Location Lt brachial Position Sitting Pulse 102 H Pulse Source Pulse Oximeter Pulse Oximetry (%) 99 Oxygen Delivery Method Room Air Intake Visit Reasons: f/u DMII [facility] [employer]iting Internship Required: No Accompanied by: Self / Same As Patient Allergies No Known Allergies [No Known Allergies*] Allergy (Verified 10/29/24 16:12) Medication List - Last Reconciled 10/29/24 by Chris Lee PA-C cyclobenzaprine 5 mg PO BID 10 days meloxicam 15 mg PO DAILY PRN 20 days metformin 1,000 mg PO BID 90 days Tobacco use date assessed: 07/25/24 Dental Screening Dental Screen Date: 07/25/24 HPI f/u DMII 2 HPI Details Patient is a 34 year-old male here today for three-month follow-up visit patient has a past medical history significant for type 2 diabetes, hyperlipidemia. DMII: ? He patient?s HbA1c has risen from 9.2% to 10.0% after being in [place] for a family emergency and indulging in high carbohydrate foods. He continues with metformin 1000 mg BID for diabetes management. He had a previous trial with GLP- 1 agonists but paused usage due to high costs. PLAN: Restart GLP 1(Ozempic) for better glycemic control. .. Hypertriglyceridemia:? Most recent lipid panel showing much improved total cholesterol, triglycerides and LDL. He has been working on dietary modifications. 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 1. Little interest or pleasure in doing things: more than half the days 2. Feeling down, depressed, or hopeless: several days 3. Trouble falling or staying asleep, or sleeping too much: several days 4. Feeling tired or having little energy: several days 5. Poor appetite or overeating: several days 6. Feeling bad about yourself - or that you are a failure or have let yourself or your family down: not at all 7. Trouble concentrating on things, such as reading the newspaper or watching television: several days 8. Moving or speaking so slowly that other people could have noticed. Or the opposite - being so fidgety or restless that you have been moving around a lot more than usual: more than half the days 9. Thoughts that you would be better off or of hurting yourself in some way: not at all Total score: 9 Depression Screening Interpretation: Positive Depression Screening Follow-up: Existing condition Depression Screening Done: Yes 68369 - PHQ-9 Billing: Yes Source: Developed by Drs. Marco Cano, Judy Castillo, Garcia Ag and colleagues, with an educational paras from [employer]. Thrive Questionnaire Date Thrive assessed: 10/29/24 I am a: Patient What is your living situation today?: I do not have a steady places to live I choose not to answer this question Within the past 12 months, did the food you bought not last and you didn't have the money to get more?: Never true Within the past 12 months, did you worry whether your food would run out before you got money to buy more?: Never true Do you have trouble paying for medicines?: No Do you have trouble getting transportation to medical appointments?: No Do you have trouble paying your heating and electricity bill?: No Do you have trouble taking care of your child, family member or friend?: No Do you have trouble with day-to-day activities such as bathing, preparing meals, shopping, managing finances, etc.?: No Are you currently unemployed and looking for a job?: No Are you interested in more education?: No Please select the resources that you would like help with: Housing/Group Home Currently or been in a relationship where the following occur: Choked THRIVE Score: 2 AUDIT C Alcohol Use Questionnaire (AUDIT-C) 1. How often do you have a drink containing alcohol?: Never 3. How often do you have six or more drinks on one occasion?: Never Total Score: 0 MARIA EUGENIA-7 AMB Questionnaire MARIA EUGENIA-7 Date MARIA EUGENIA - 7 assessed: 10/29/24 Feeling nervous, anxious, or on edge: 1 = Several days Not being able to stop or control worryin = Several days Worrying too much about different things: 1 = Several days Trouble relaxin = Several days Being so restless that it is hard to sit still: 1 = Several days Becoming easily annoyed or irritable: 1 = Several days Feeling afraid as if something awful might happen: 1 = Several days Total MARIA EUGENIA-7 score (0-4 normal; 5-9 mild; 10-14 moderate; 15-21 severe): 7 Source: Developed by Drs. Marco Cano, Judy Castillo, Garcai Ag and colleagues, with an educational paras from [employer]. MARIA EUGENIA-7 Assessment Billing MARIA EUGENIA-7 Assessment Tool: MARIA EUGENIA-7 Assessment 81208 Review of Systems Const Denies headache(s) Eyes Denies loss of vision ENT Denies vertigo, Denies dizziness, Denies headache(s) and Denies sore throat Card Denies chest pain, Denies leg edema and Denies lightheadedness Resp Denies cough, Denies hemoptysis and Denies wheezing GI Denies abdominal pain, Denies melena, Denies constipation, Denies diarrhea and Denies vomiting Denies dysuria, Denies urinary frequency and Denies urinary urgency Musc Denies arthralgias, Denies joint swelling, Denies numbness and Denies tingling Neuro Denies Abnormal speech present, Denies behavioral changes, Denies vertigo, Denies dizziness, Denies headache(s), Denies loss of vision, Denies memory loss, Denies numbness and Denies tingling Psych Denies anxiety, Denies behavioral changes, Denies depression, Denies memory loss and Denies panic attacks Tremayne/Lymph Denies easy bleeding and Denies easy bruising Aller/Immun Denies wheezing Physical exam (Primary Care) Vital Signs: Last Vital Signs Pulse 102 H 10/29/24 16:09 BP 128/80 10/29/24 16:09 Pulse Ox 99 10/29/24 16:09 Oxygen Delivery Method Room Air 10/29/24 16:09 BMI result Body Mass Index 24.0 Tobacco/Smoking Status: Tobacco use Status Tobacco use date assessed 07/25/24 10/29/24 15:59 Patient Tobacco Use Status Never used Tobacco 10/29/24 15:59 Tobacco use type Cigarette 10/29/24 15:59 e-Cigarette/Vaping Use Never Used 10/29/24 15:59 PHQ-9: PHQ-9 Score PHQ-9: Total score 9 10/29/24 16:21 Depression Screening Interpretation: Positive Depression Screening Follow-up: Existing condition Thrive Assessment: Date of Thrive Assessment Date Thrive assessed 10/29/24 10/29/24 16:01 Currently or been in a relationship where the following occur: Choked Const General: healthy appearing, no acute distress, alert and awake Nutritional Appearance: well nourished Orientation/consciousness: oriented to person, oriented to place and oriented to time HENMT Ears: TM's normal bilaterally General nose exam: Normal nasal mucous membranes and turbinates present Eyes Conjunctivae: conjunctivae normal Sclerae: sclerae normal Pupils: Equal, round and reactive pupils present Neck Neck: Yes no lymphadenopathy and Yes no JVD Thyroid: Thyroid normal Carotids: no bruits Resp Effort & Inspection: normal respiratory effort and not tachypneic Auscultation: no crackles, no rales, no rhonchi and no wheezes Cardio Rate: regular rate Rhythm: regular rhythm Heart sounds: no murmurs and normal S1 and S2 GI Palpation (GI): Soft to palpation, nontender, no hepatomegaly and no splenomegaly Auscultation: normal bowel sounds Skin General skin exam: no rashes or lesions noted and dry skin Neuro General: oriented to person, oriented to place and oriented to time Cranial nerves: Yes Equal, round and reactive pupils present Speech: No Abnormal speech present Gait exam (Neuro): Normal gait present Motor exam (neuro): no tremor noted Extrem Right upper extremity: full ROM Left upper extremity: full ROM Right lower extremity: full ROM; no edema Left lower extremity: full ROM; no edema Psych Mental Status: mental status grossly normal Speech and movement: Normal speech and movement present Affect: normal affect Attitude: cooperative Thought process: Normal thought process present Results AMB Hemoglobin A1c AMB Hemoglobin A1c 10.0 % Last Edit by NADEGE Madera on 10/29/24 16:15 Results Reviewed Results Reviewed: Laboratory Last Values Hgb A1c (Clinic) 10.0 % (4.0-6.0) H 10/29/24 15:58 Coding Level of Care Code Est Pt Level 4 (40488) Diagnoses Type 2 diabetes mellitus with hyperglycemia, without long-term current use of insulin E11.65 Diabetes mellitus complication status: with hyperglycemia Diabetes mellitus group home insulin use: without group home use Pure hypertriglyceridemia E78.1 Hyperlipidemia type: pure hypertriglyceridemia Right shoulder tendinitis M77.8 Additional Codes MARIA EUGENIA-7 Assessment Billing - MARIA EUGENIA-7 Assessment Tool: MARIA EUGENIA-7 Assessment 86518 ([id number]) PHQ-9 - 27390 - PHQ-9 Billing: Yes ([id number]) Assessment & Plan Assessment & Plan (1) DMII (diabetes mellitus, type 2): Code(s): E11.9 - Type 2 diabetes mellitus without complications Category: Medical Qualifiers: Diabetes mellitus complication status: with hyperglycemia Diabetes mellitus group home insulin use: without termite treater helper use Qualified Code(s): E11.65 - Type 2 diabetes mellitus with hyperglycemia Plan: Patient's type 2 diabetes suboptimally controlled , does admit to some dietary indiscretion. He continues on metformin a 1000 b.i.d. though A1c unfortunately now at 10.0. He is willing to start GLP 1 again for glycemic control. Goal A1c is to be below 7.0 (2) HLD (hyperlipidemia): Code(s): E78.5 - Hyperlipidemia, unspecified Category: Medical Qualifiers: Hyperlipidemia type: pure hypertriglyceridemia Qualified Code(s): E78.1 - Pure hyperglyceridemia Plan: Patient's most recent lipid panel showing excellent control of his total cholesterol and LDL. He has been making dietary modifications and has been more physically active. Goal LDL to remain below 100 (3) Right shoulder tendinitis: Code(s): M77.8 - Other enthesopathies, not elsewhere classified Category: Medical Plan: Has been resolving with conservative measures. Orders: Orders AMB Hemoglobin A1c 10/29/24.65 - Type 2 diabetes mellitus with hyperglycemia Lipid Panel 10/29/24 E78.1 - Pure hyperglyceridemia Comprehensive [place]. Panel Fast 10/29/24.65 - Type 2 diabetes mellitus with hyperglycemia Complete Blood Count no Diff 10/29/2465 - Type 2 diabetes mellitus with hyperglycemia Medications: New semaglutide (Ozempic) 0.25 mg (0.368 mL) subcut QWEEK 3 mL 3RF 4 weeks E11.65 - Type 2 diabetes mellitus with hyperglycemia Refilled metformin 1,000 mg PO BID 180 tabs 1RF 90 days E11.65 - Type 2 diabetes mellitus with hyperglycemia
[2024-10-29 16:09] VITALS: BP 128/80; PULSE 102; O2SAT 99; BMI 24.0
--- OUTSIDE RECORDS SUMMARY | 2024-10-29 17:21 | XMS_ITS | Clinical Summary ---
Author Organization [employer] Address [address] [facility] [address] 7 [place] [address] Care Team Providers Care Nursing Project Coordinator Name Role Phone Unavailable Primary Care Provider [...]
== END 2024-10-29 16:21 | disposition home or self-care (01) ==
LOC: HO.HMCH 15:54
PROVIDERS: PCP Physician Assistant; Visit Provider Physician Assistant
DX: E11.65 Type 2 diabetes mellitus with hyperglycemia (principal); E78.1 Pure hyperglyceridemia; M77.8 Other enthesopathies, not elsewhere classified

== ENCOUNTER → 2024-10-29 15:53 | Outpatient (BNVA) | payer OTHER, SELFPAY | PROVIDERS: PCP Physician Assistant; Visit Provider Physician Assistant | DX: E11.65 Type 2 diabetes mellitus with hyperglycemia (principal); E78.1 Pure hyperglyceridemia; M77.8 Other enthesopathies, not elsewhere classified; Z79.84 Long term (current) use of oral hypoglycemic drugs | CPT/HCPCS: 83036; 96127 ==

== ENCOUNTER 2025-03-23 07:59 | Outpatient (REF) | payer OTHER, SELFPAY ==
--- OUTSIDE RECORDS SUMMARY | 2025-03-23 08:03 | XMS_ITS | Clinical Summary ---
Author Organization [employer] Address [address] [place] [address] 7 [place] [address] Care Team Providers Care Critical Care Transport Nurse Name Role Phone Unavailable Primary Care Provider Unavailabl e Immunizations Immunization Administration Dates Next Due Pfizer Covid-19 Vaccine [...] 1988 Lipid Panel 1988 SDOH Screening 1988 Disability Screening 1988 Alcohol/Substance Use Screening 2000 Tobacco Screening 2000 Family Planning (PISQ) 2003 HPV Vaccines (1 - Male 3-dos e series) 2003 Hepatitis C Screening 2006 DTaP/Tdap/Td Vaccines (1 - Tdap) 2007 Hepatitis B Vaccines (1 of 3 - 19+ 3-dose series) 2007 COVID-19 Vaccine (4 - 2024-2 6 season) 2025 09/03/2022, 12/09/2020, 11/17/2020 Influenza Vaccine (#1) 2025 Zoster Vaccines (1 of 2) 2038 RSV [...] patient's age to complete this topic Meningococcal B Vaccine Aged Out No l onger eligible based on patient's age to complete this topic Meningococcal Vaccine Aged Out No molina janine eligible based on patient's age to complete this topic Pneumococcal Vaccine: Pediatrics (0 to 5 Years) and At-Risk Patients (6 to 49) Years Aged Out No longer eligible b ased on patient's age to complete this topic RSV under 20 months Aged Out No longe r eligible based on patient's age to complete this topic Rotavirus Vaccines Aged Out No longer eligible based on patient's age to complete this topic Insurance [employer]
[2025-03-23 08:51] LABS: Hematocrit 44.1 % (42.0-52.0); Hemoglobin 14.8 g/dl (14.0-18.0); Mean Corpuscular HGB Conc 33.6 g/dl (31.0-36.0); Mean Corpuscular Hemoglobin 28.5 pg (27.0-33.0); Mean Corpuscular Volume 84.8 fL (80.0-98.0); NRBC Abs Auto 0.000 X10*3/uL (0.0-0.012); NRBC Pct Auto 0.0 /100WBC (0.0-0.2); Platelet Count 211 X10*3/uL (160-400); Red Blood Count 5.20 X10*6/uL (4.60-5.80); White Blood Count 8.4 X10*3/uL (4.8-10.8)
[2025-03-23 09:29] LABS: Alanine Aminotransferase 20 U/L (0-40); Albumin Level 4.6 g/dL (3.5-5.0); Alkaline Phosphatase 108 U/L (39-117); Anion Gap 10 (12-20); Aspartate Amino Transferase 26 U/L (5-37); Blood Urea Nitrogen 13 mg/dL (9-16); Calcium 9.3 mg/dL (8.4-10.2); Carbon Dioxide 26 mmol/L (22-29); Chloride 113 mmol/L (96-108); Cholesterol 116 mg/dL (<200); Estimated Glomerular Filt Rate > 60; HDL Cholesterol 22 mg/dL (>40); Potassium 4.3 mmol/L (3.3-5.1); Sodium 145 mmol/L (135-145); Total Protein 7.1 g/dL (6.5-8.0); Triglycerides 146 mg/dL (<150)
== END 2025-03-23 08:00 | disposition home or self-care (01) ==
LOC: HO.LAB 07:59
PROVIDERS: PCP Physician Assistant; Visit Provider Physician Assistant
DX: E11.65 Type 2 diabetes mellitus with hyperglycemia (principal); E78.1 Pure hyperglyceridemia
CPT/HCPCS: 36415; 80053; 80061; 85027

== ENCOUNTER 2025-04-02 10:09 | Outpatient (AMB) | payer OTHER, SELFPAY ==
--- NOTE | 2025-04-02 10:23 | MHC.PC.OV ---
Vital Signs 04/02/25 10:25 Height 5 ft 9 in Weight 160 lb 8 oz BMI 23.7 BP 130/70 Blood Pressure Location Lt brachial Position Sitting Pulse 95 Pulse Source Pulse Oximeter Temp 97.5 F Temp Source Temporal Artery Scan Pulse Oximetry (%) 97 Oxygen Delivery Method Room Air Intake Visit Reasons: resheduled 3 month follow up Intake Note: Patient is here to follow up on DM, HLD, . Fruit Thinner Machine Operator Required: No Meter Reader Chief: Not Required per policy Accompanied by: Self / Same As Patient Allergies No Known Allergies (No Known Allergies*) Allergy (Verified 04/02/25 10:35) Medication List - Last Reconciled 04/02/25 by Chris Lee PA-C metformin 1,000 mg PO BID 90 days semaglutide (Ozempic) 0.25 mg (0.368 mL) subcut QWEEK 4 weeks Tobacco use date assessed: 04/02/25 Dental Screening Dental Screen Date: 07/25/24 HPI resheduled 3 month follow up HPI Details Patient is a 34 year-old male here today for three-month follow-up visit patient has a past medical history significant for type 2 diabetes, hyperlipidemia. Concern-- > The patient reports persistent fatigue despite normal blood sugar levels and adequate sleep. He denies any symptoms suggestive of sleep apnea. A vitamin D supplement was recommended to address potential deficiencies. DMII: His diabetes management includes regular monitoring of A1c levels, with the latest result showing an improvement to 7.4 from a previous 10. Current medications include Ozempic 0.5 mg weekly and Metformin daily, with no adverse effects reported. PLAN: Continue current doses of antihyperglycemic medication, goal A1c is to be below 7.0? . .. Hypertriglyceridemia:? Most recent lipid panel showing much improved total cholesterol, triglycerides and LDL. He has been working on dietary modifications. 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 [employer] Cognitive needs: No Hearing needs: No Vision needs: No Questionnaire Thrive Questionnaire Date Thrive assessed: 10/29/24 I am a: Patient What is your living situation today?: I do not have a steady places to live I choose not to answer this question Within the past 12 months, did the food you bought not last and you didn't have the money to get more?: Never true Within the past 12 months, did you worry whether your food would run out before you got money to buy more?: Never true Do you have trouble paying for medicines?: No Do you have trouble getting transportation to medical appointments?: No Do you have trouble paying your heating and electricity bill?: No Do you have trouble taking care of your child, family member or friend?: No Do you have trouble with day-to-day activities such as bathing, preparing meals, shopping, managing finances, etc.?: No Are you currently unemployed and looking for a job?: No Are you interested in more education?: No Please select the resources that you would like help with: Housing/Detention Currently or been in a relationship where the following occur: Choked THRIVE Score: 2 AUDIT C Alcohol Use Questionnaire (AUDIT-C) 3. How often do you have six or more drinks on one occasion?: Never Total Score: 0 MARIA EUGENIA-7 AMB Questionnaire MARIA EUGENIA-7 Date MARIA EUGENIA - 7 assessed: 10/29/24 Source: Developed by Drs. Marco Cano, Judy Castillo, Garcia Ag and colleagues, with an educational paras from [employer]. Review of Systems Const Denies headache(s) Eyes Denies loss of vision ENT Denies vertigo, Denies dizziness, Denies headache(s) and Denies sore throat Card Denies chest pain, Denies leg edema and Denies lightheadedness Resp Denies cough, Denies hemoptysis and Denies wheezing GI Denies abdominal pain, Denies melena, Denies constipation, Denies diarrhea and Denies vomiting Denies dysuria, Denies urinary frequency and Denies urinary urgency Musc Denies arthralgias, Denies joint swelling, Denies numbness and Denies tingling Neuro Denies Abnormal speech present, Denies behavioral changes, Denies vertigo, Denies dizziness, Denies headache(s), Denies loss of vision, Denies memory loss, Denies numbness and Denies tingling Psych Denies anxiety, Denies behavioral changes, Denies depression, Denies memory loss and Denies panic attacks Tremayne/Lymph Denies easy bleeding and Denies easy bruising Aller/Immun Denies wheezing Physical exam (Primary Care) Vital Signs: Last Vital Signs Temp 97.5 F 04/02/25 10:25 Pulse 95 04/02/25 10:25 BP 130/70 04/02/25 10:25 Pulse Ox 97 04/02/25 10:25 Oxygen Delivery Method Room Air 04/02/25 10:25 BMI result Body Mass Index 23.7 Tobacco/Smoking Status: Tobacco use Status Tobacco use date assessed 04/02/25 04/02/25 10:31 Patient Tobacco Use Status Never used Tobacco 04/02/25 10:31 Tobacco use type Cigarette 04/02/25 10:31 e-Cigarette/Vaping Use Never Used 04/02/25 10:31 Thrive Assessment: Date of Thrive Assessment Date Thrive assessed 10/29/24 04/02/25 10:31 Currently or been in a relationship where the following occur: Choked Const General: healthy appearing, no acute distress, alert and awake Nutritional Appearance: well nourished Orientation/consciousness: oriented to person, oriented to place and oriented to time [facility] Ears: TM's normal bilaterally General nose exam: Normal nasal mucous membranes and turbinates present Eyes Conjunctivae: conjunctivae normal Sclerae: sclerae normal Pupils: Equal, round and reactive pupils present Neck Neck: Yes no lymphadenopathy and Yes no JVD Thyroid: Thyroid normal Carotids: no bruits Resp Effort & Inspection: normal respiratory effort and not tachypneic Auscultation: no crackles, no rales, no rhonchi and no wheezes Cardio Rate: regular rate Rhythm: regular rhythm Heart sounds: no murmurs and normal S1 and S2 GI Palpation (GI): Soft to palpation, nontender, no hepatomegaly and no splenomegaly Auscultation: normal bowel sounds Skin General skin exam: no rashes or lesions noted and dry skin Neuro General: oriented to person, oriented to place and oriented to time Cranial nerves: Yes Equal, round and reactive pupils present Speech: No Abnormal speech present Gait exam (Neuro): Normal gait present Motor exam (neuro): no tremor noted Extrem Right upper extremity: full ROM Left upper extremity: full ROM Right lower extremity: full ROM; no edema Left lower extremity: full ROM; no edema Psych Mental Status: mental status grossly normal Speech and movement: Normal speech and movement present Affect: normal affect Attitude: cooperative Thought process: Normal thought process present Office Procedures Flu Questionnaire Does the patient have a severe egg allergy?: No Does the patient have severe life threatening allergies?: No Does the patient have a fever or illness today?: No Has the patient ever had Guillain-[place]ford Syndrome?: No Has the patient ever had any past reaction to a flu shot?: No Results AMB Hemoglobin A1c AMB Hemoglobin A1c 7.4 % Last Edit by SYLVIE Leon on 04/02/25 10:36 Immunizations Fluarix [id number] (PF) 45 mcg (15 mcg x 3)/0.5 mL IM syringe Performing Provider: Chris Lee PA-C [facility] Administered by: Camryn Rosa CMA on 04/02/25 10:51 Dose Route Admin Location Dispensed Lot Number Expiration Date [facility] Manager Of Internal Audit 0.5 mL IM Left Deltoid 0.5 mL [id number] 12/24/25 [id number] [employer] VIS Given Date VIS Provided VIS Publication Date 04/02/25 Single Vaccine 24 Eligibility Eligibility Date Funding Source Not [facility] Eligible 04/02/25 Private Results Reviewed Results Reviewed: Laboratory Last Values Hgb A1c (Clinic) 7.4 % (4.0-6.0) H 04/02/25 10:22 Coding Level of Care Code Est Pt Level 4 (26490) Diagnoses Type 2 diabetes mellitus with hyperglycemia, without long-term current use of insulin E11.65 Diabetes mellitus complication status: with hyperglycemia Diabetes mellitus assisted insulin use: without intermediate card tender use Pure hypertriglyceridemia E78.1 Hyperlipidemia type: pure hypertriglyceridemia Chronic fatigue R53.82 Fatigue type: chronic, unspecified Assessment & Plan Assessment & Plan (1) DMII (diabetes mellitus, type 2): Code(s): E11.9 - Type 2 diabetes mellitus without complications Category: Medical Qualifiers: Diabetes mellitus complication status: with hyperglycemia Diabetes mellitus intermediate card tender insulin use: without intermediate card tender use Qualified Code(s): E11.65 - Type 2 diabetes mellitus with hyperglycemia Plan: Patient's type 2 diabetes suboptimally controlled with an A1c is 7.4 though has improved significantly with the addition of Ozempic. He continues on metformin a 1000 b.i.d. though A1c unfortunately now at 10.0. Goal A1c is to be below 7.0 (2) HLD (hyperlipidemia): Code(s): E78.5 - Hyperlipidemia, unspecified Category: Medical Qualifiers: Hyperlipidemia type: pure hypertriglyceridemia Qualified Code(s): E78.1 - Pure hyperglyceridemia Plan: Patient's most recent lipid panel showing excellent control of his total cholesterol and LDL. He has been making dietary modifications and has been more physically active. Goal LDL to remain below 100 (3) Fatigue: Code(s): R53.83 - Other fatigue Category: Medical Qualifiers: Fatigue type: chronic, unspecified Qualified Code(s): R53.82 - Chronic fatigue, unspecified Plan: A vitamin D supplement will be started to address fatigue, with follow-up labs to check vitamin levels. Orders: Orders AMB Hemoglobin A1c Today E11.65 - Type 2 diabetes mellitus with hyperglycemia Lipid Panel Today E78.1 - Pure hyperglyceridemia Comprehensive [place]. Panel Fast Today E11.65 - Type 2 diabetes mellitus with hyperglycemia Hemoglobin A1c Today E11.65 - Type 2 diabetes mellitus with hyperglycemia Vitamin D 25-OH Total Today R53.83 - Other fatigue Vitamin B12 and Folate Today E53.8 - Deficiency of other specified B group vitamins, R53.83 - Other fatigue Influenza [id number] Immunization Today Z23 - Encounter for immunization Complete Blood Count no Diff Today E11.65 - Type 2 diabetes mellitus with hyperglycemia Microalbumin, Random (w Creat) Today E11.65 - Type 2 diabetes mellitus with hyperglycemia Medications: New cholecalciferol (vitamin D3) 25 mcg PO DAILY 90 caps 1RF 90 days R53.83 - Other fatigue
[2025-04-02 10:25] VITALS: BP 130/70; PULSE 95; TEMP 36.4; O2SAT 97; BMI 23.7
--- OUTSIDE RECORDS SUMMARY | 2025-04-02 12:02 | XMS_ITS | Clinical Summary ---
Author Organization [email or web address] Address [address] [place] [address] [address] [place] [address] Care Team Providers Care Laser Beam Color Scanner Operator Name Role Phone Unavailable Primary Care Provider [...]
== END 2025-04-02 10:52 | disposition home or self-care (01) ==
LOC: HO.HMCH 10:10
PROVIDERS: PCP Physician Assistant; Visit Provider Physician Assistant
DX: E11.65 Type 2 diabetes mellitus with hyperglycemia (principal); E78.1 Pure hyperglyceridemia; R53.82 Chronic fatigue, unspecified; Z23 Encounter for immunization

== ENCOUNTER → 2025-04-02 10:09 | Outpatient (BNVA) | payer OTHER, SELFPAY | PROVIDERS: PCP Physician Assistant; Visit Provider Physician Assistant | DX: E11.65 Type 2 diabetes mellitus with hyperglycemia (principal); E78.1 Pure hyperglyceridemia; R53.82 Chronic fatigue, unspecified; Z23 Encounter for immunization | CPT/HCPCS: 83036; 90471; 90656 ==